=== PATIENT | male | born 1935 | race Two or more races ===

== ENCOUNTER 2017-04-13 10:20 | Outpatient (CLI) | payer MEDICARE, MEDICAID | END 2017-04-13 23:59 | disposition home health service (06) | LOC: WOU 10:20 | PROVIDERS: ATTEND Podiatrist Foot & Ankle Surgery | DX: L89.524 Pressure ulcer of left ankle, stage 4 (principal); L89.514 Pressure ulcer of right ankle, stage 4; L89.620 Pressure ulcer of left heel, unstageable; L89.610 Pressure ulcer of right heel, unstageable; L89.894 Pressure ulcer of other site, stage 4; Z74.01 Bed confinement status; Z87.891 Personal history of nicotine dependence; I12.0 Hypertensive chronic kidney disease with stage 5 chronic kidney disease or end stage renal disease; N18.6 End stage renal disease; Z99.2 Dependence on renal dialysis; Z93.1 Gastrostomy status; Z79.899 Other long term (current) drug therapy; B35.1 Tinea unguium; R53.1 Weakness; L89.159 Pressure ulcer of sacral region, unspecified stage | CPT/HCPCS: 11042; 11043; 11045; 11046; A6253 ×2; A6402 ×2 ==

== ENCOUNTER 2017-05-02 10:27 | Outpatient (CLI) | payer MEDICARE, MEDICAID | END 2017-05-02 23:59 | disposition home health service (06) | LOC: WOU 10:27 | PROVIDERS: ATTEND Podiatrist Foot & Ankle Surgery | PROC: 0KBS0ZZ Excision of Right Lower Leg Muscle, Open Approach (ICD-10-PCS; principal; 2017-05-02) | PROC: 0KBV0ZZ Excision of Right Foot Muscle, Open Approach (ICD-10-PCS; principal; 2017-05-02) | PROC: 0KBW0ZZ Excision of Left Foot Muscle, Open Approach (ICD-10-PCS; principal; 2017-05-02) | PROC: 0JBG0ZZ Excision of Right Lower Arm Subcutaneous Tissue and Fascia, Open Approach (ICD-10-PCS; principal; 2017-05-02) | DX: L89.524 Pressure ulcer of left ankle, stage 4 (principal); L89.624 Pressure ulcer of left heel, stage 4; L89.894 Pressure ulcer of other site, stage 4; L89.514 Pressure ulcer of right ankle, stage 4; L89.610 Pressure ulcer of right heel, unstageable; L89.223 Pressure ulcer of left hip, stage 3; L89.152 Pressure ulcer of sacral region, stage 2; L89.321 Pressure ulcer of left buttock, stage 1; L89.311 Pressure ulcer of right buttock, stage 1; L89.010 Pressure ulcer of right elbow, unstageable; Z87.891 Personal history of nicotine dependence; Z93.1 Gastrostomy status; Z99.2 Dependence on renal dialysis; I12.0 Hypertensive chronic kidney disease with stage 5 chronic kidney disease or end stage renal disease; N18.6 End stage renal disease; Z74.01 Bed confinement status; I69.30 Unspecified sequelae of cerebral infarction | CPT/HCPCS: 11042; 11043; 11045; 11046; A6209; A6210; A6402 ×2 ==

== ENCOUNTER 2017-05-09 09:58 | Outpatient (CLI) | payer MEDICARE, MEDICAID | END 2017-05-09 23:59 | disposition home or self-care (01) | LOC: WOU 09:58 | PROVIDERS: ATTEND Podiatrist Foot & Ankle Surgery | DX: L89.624 Pressure ulcer of left heel, stage 4 (principal); L89.610 Pressure ulcer of right heel, unstageable; L89.524 Pressure ulcer of left ankle, stage 4; L89.514 Pressure ulcer of right ankle, stage 4; L89.894 Pressure ulcer of other site, stage 4; L89.223 Pressure ulcer of left hip, stage 3; L89.010 Pressure ulcer of right elbow, unstageable; L89.152 Pressure ulcer of sacral region, stage 2; L89.322 Pressure ulcer of left buttock, stage 2; L89.312 Pressure ulcer of right buttock, stage 2; Z93.1 Gastrostomy status; I69.30 Unspecified sequelae of cerebral infarction; I12.0 Hypertensive chronic kidney disease with stage 5 chronic kidney disease or end stage renal disease; N18.6 End stage renal disease; Z99.2 Dependence on renal dialysis | CPT/HCPCS: 11043; 11046; A6209; A6210; A6253 ×3; A6402 ×3; G0463 ==

== ENCOUNTER 2017-09-10 15:20 | Inpatient (IN) | payer MEDICARE, OTHER ==
[~2017-09-10] VITALS: Ht 101.6 cm; Wt 71.7 kg
[2017-09-10 15:44] VITALS: BP 122/70
[2017-09-10] MEDS ORDERED: IV NS 0.9% 1,000 ML BAG IV ONE (16:00)
[2017-09-10 16:12] LABS: BASOPHILS % (AUTO) 0.3 % (0.0-2.0); EOSINOPHILS # (AUTO) 0.1 /CMM (0.0-0.7); EOSINOPHILS % (AUTO) 0.9 % (0.0-6.0); HEMATOCRIT 27 % (39-51); HEMOGLOBIN 8.8 g/dL (13.5-17.5); LYMPHOCYTES # (AUTO) 1.7 /CMM (0.8-4.8); LYMPHOCYTES % (AUTO) 21.4 % (20.0-44.0); MEAN CORPUSCULAR HEMOGLOBIN 29 PG (26.0-33.0); MEAN CORPUSCULAR HGB CONC 33 g/dl (31.0-36.0); MEAN CORPUSCULAR VOLUME 88 fL (80-96); MONOCYTES # (AUTO) 1.2 /CMM (0.1-1.30); MONOCYTES % (AUTO) 14.9 % (2.0-12.0); NEUTROPHILS # (AUTO) 4.8 /CMM (1.8-8.9); NEUTROPHILS % (AUTO) 62.5 % (43.0-81.0); PLATELET COUNT (AUTO) 132 /CMM (150-450); RDW COEFFICIENT OF VARIATION 22.4 (11.5-15.0); RED BLOOD CELL COUNT(AUTO) 3.03 MIL/uL (4.5-6.0); WHITE BLOOD COUNT (AUTO) 7.8 K/uL (4.3-11.0)
[2017-09-10 16:23] LABS: INR 1.11 (0.85-1.15)
[2017-09-10 16:27] LABS: ALANINE AMINOTRANSFERASE 28 U/L (12-78); ALBUMIN 1.9 g/dL (3.4-5.0); ALKALINE PHOSPHATASE 152 U/L (46-116); ASPARTATE AMINOTRANSFERASE 39 U/L (15-37); BILIRUBIN,DIRECT 0.4 mg/dL (0.0-0.2); BILIRUBIN,TOTAL 0.8 mg/dL (0.2-1.0); CALCIUM, SERUM 9.4 mg/dL (8.5-10.1); CARBON DIOXIDE 24 mmol/L (21-32); CHLORIDE 98 mmol/L (98-107); CREATININE 5.6 mg/dL (0.6-1.3); GLUCOSE 122 mg/dL (74-106); SODIUM SERUM 135 mmol/L (136-145); TOTAL PROTEIN, SERUM 9.8 g/dL (6.4-8.2); TROPONIN I 0.021 ng/mL (0.00-0.056)
[2017-09-10 16:32] LABS: POTASSIUM 6.2 mmol/L (3.5-5.1); UREA NITROGEN, BLOOD 112 mg/dL (7-18)
[2017-09-10] MEDS ORDERED: LEVO25TA9 GT (17:29)
[2017-09-10] MEDS ORDERED: EPOE3000 SQ (17:29)
[2017-09-10] MEDS ORDERED: [UNRECOGNIZED DRUG - CODE] SQ (17:29)
[2017-09-10] MEDS ORDERED: INSU100V7 SQ (17:29)
[2017-09-10] MEDS ORDERED: ACET-868 GT (17:29)
[2017-09-10] MEDS ORDERED: LANS30CA56 GT (17:29)
[2017-09-10] MEDS ORDERED: HYDR-552 GT (17:29)
[2017-09-10] MEDS ORDERED: INSU100I4 SQ (17:29)
[2017-09-10] MEDS ORDERED: VANCOMYCIN 1 GM in IV D5W 250 ML IV ONE (17:30)
[2017-09-10] MEDS ORDERED: PIPERACILLIN /TAZOBACTAM 3.375 G in IV D5W 50 ML IV ONE (17:30)
[2017-09-10 18:55] VITALS: BP 108/71
[2017-09-10] MEDS ORDERED: ACETAMINOPHEN 325 MG TABLET PO PRN ×2 (19:30→20:00)
[2017-09-10] MEDS ORDERED: MAG HYDROX/AL HYDROX/SIMETH 30 ML UDC PO PRN ×2 (19:30→20:00)
[2017-09-10] MEDS ORDERED: INSULIN REGULAR, HUMAN 100 UNIT/ML 3 ML VIAL SQ PRN ×2 (19:30→20:00)
[2017-09-10] MEDS ORDERED: HYDROCODONE/APAP 5/325MG 1 EACH TABLET PO PRN ×2 (19:30→20:00)
[2017-09-10] MEDS ORDERED: ZOLPIDEM TARTRATE 5 MG TABLET PO PRN ×2 (19:30→20:00)
[2017-09-10] MEDS ORDERED: Z GUARD REMEDY 2 OZ OINT TP PRN (19:30)
[2017-09-10] MEDS ORDERED: DEXTROSE 50%-WATER 50 ML DISP.SYRIN IV PRN ×2 (19:30→20:00)
[2017-09-10] MEDS ORDERED: MAGNESIUM HYDROXIDE 30 ML UDC PO PRN ×2 (19:30→20:00)
[2017-09-10] MEDS ORDERED: ONDANSETRON HCL/PF 4 MG/2 ML VIAL IVP PRN ×2 (19:30→20:00)
[2017-09-10] MEDS ORDERED: *INSULIN REGULAR(HUMULIN R)HUM 100 UNIT/ML VIAL SQ PRN (19:30)
[2017-09-10] MEDS ORDERED: HEPARIN SODIUM, PORCINE 1,000 UNIT/ML VIAL SQ SCH (19:30)
[2017-09-10] MEDS ORDERED: FEE PK DOSING 1 MIN EA MC ONE (19:46)
[2017-09-10 20:00] VITALS: BP 122/61
[2017-09-10] MEDS ORDERED: MORPHINE SULFATE INJ 4 MG/ML DISP.SYRIN IV PRN (20:00)
[2017-09-10] MEDS ORDERED: MORPHINE SULFATE INJ 2 MG/ML DISP.SYRIN IV PRN (20:00)
[2017-09-10] MEDS: PIPERACILLIN /TAZOBACTAM 2.25 G in IV NS 0.9% 50 ML IV SCH (21:24)
[2017-09-10] MEDS: *INSULIN REGULAR(HUMULIN R)HUM 100 UNIT/ML VIAL SQ PRN (21:34)
[2017-09-10] MEDS ORDERED: BLOOD SUGAR DIAGNOSTIC 1 EACH STRIP VI SCH ×2 (22:00)
[2017-09-11] MEDS: PIPERACILLIN /TAZOBACTAM 2.25 G in IV NS 0.9% 50 ML IV SCH ×3 (05:37→21:43)
[2017-09-11] MEDS ORDERED: VANCOMYCIN 500 MG in IV D5W 100 ML IV PRN (06:00)
[2017-09-11] MEDS: BLOOD SUGAR DIAGNOSTIC 1 EACH STRIP VI SCH ×3 (06:19→17:16)
[2017-09-11 08:00] VITALS: BP 91/48
[2017-09-11 08:08] LABS: BASOPHILS % (AUTO) 0.4 % (0.0-2.0); EOSINOPHILS # (AUTO) 0.1 /CMM (0.0-0.7); EOSINOPHILS % (AUTO) 1.2 % (0.0-6.0); HEMATOCRIT 28 % (39-51); HEMOGLOBIN 8.8 g/dL (13.5-17.5); LYMPHOCYTES # (AUTO) 1.2 /CMM (0.8-4.8); LYMPHOCYTES % (AUTO) 18.9 % (20.0-44.0); MEAN CORPUSCULAR HEMOGLOBIN 28 PG (26.0-33.0); MEAN CORPUSCULAR HGB CONC 32 g/dl (31.0-36.0); MEAN CORPUSCULAR VOLUME 88 fL (80-96); MONOCYTES # (AUTO) 1.3 /CMM (0.1-1.30); MONOCYTES % (AUTO) 19.6 % (2.0-12.0); NEUTROPHILS # (AUTO) 3.9 /CMM (1.8-8.9); NEUTROPHILS % (AUTO) 59.9 % (43.0-81.0); PLATELET COUNT (AUTO) 108 /CMM (150-450); RDW COEFFICIENT OF VARIATION 25.2 (11.5-15.0); RED BLOOD CELL COUNT(AUTO) 3.12 MIL/uL (4.5-6.0); WHITE BLOOD COUNT (AUTO) 6.6 K/uL (4.3-11.0)
[2017-09-11 08:25] LABS: CALCIUM, SERUM 8.7 mg/dL (8.5-10.1); CARBON DIOXIDE 20 mmol/L (21-32); CHLORIDE 99 mmol/L (98-107); GLUCOSE 79 mg/dL (74-106); MAGNESIUM 2.9 mg/dL (1.8-2.4); SODIUM SERUM 137 mmol/L (136-145)
[2017-09-11 08:29] LABS: PHOSPHORUS 9.2 mg/dL (2.5-4.9); POTASSIUM 6.6 mmol/L (3.5-5.1); UREA NITROGEN, BLOOD 115 mg/dL (7-18)
[2017-09-11] MEDS: LEVOTHYROXINE SODIUM 25 MCG TABLET GT SCH (09:03)
[2017-09-11 10:00] VITALS: BP 92/45
[2017-09-11] MEDS ORDERED: EPOETIN ALFA (10,000 UNIT) 10,000 UNIT/ML VIAL IV ONE (11:00)
[2017-09-11 11:31] LABS: LYMPHOCYTES % (MANUAL) 22 % (16-48); MONOCYTES % (MANUAL) 11 % (0-11.0); NEUTROPHILS % (MANUAL) 67 (42-76)
[2017-09-11] MEDS ORDERED: ALBUMIN 25% 25 GM in PREMIX 1 EA IV ONE (12:30)
[2017-09-11 16:00] VITALS: BP 94/58
[2017-09-11] MEDS ORDERED: SILVER NITRATE APPLICATOR 1 EA BOX TP ONE (16:00)
[2017-09-11] MEDS ORDERED: LIDOCAINE 1%-EPI 1:100,000 20 ML VIAL TP ONE (16:00)
[2017-09-11] MEDS: DAKINS QUARTER STRENGTH (0.125%) 480 ML BOTTLE TOP SCH (17:12)
[2017-09-11] MEDS: IPRATROPIUM NEB FS 0.5 MG/2.5 ML AMPUL.NEB NEB SCH ×2 (17:19→19:57)
[2017-09-11] MEDS: ALBUTEROL HALF STRENGTH 1.25 MG/3 ML VIAL.NEB NEB SCH ×2 (17:20→19:57)
[2017-09-11] MEDS: ACETYLCYSTEINE 10% SOLN 400 MG/4 ML VIAL NEB SCH (17:20)
[2017-09-11 20:00] VITALS: BP 117/60
[2017-09-12] VITALS: BP 107/55
[2017-09-12] MEDS: BLOOD SUGAR DIAGNOSTIC 1 EACH STRIP VI SCH ×5 (01:01→23:57)
[2017-09-12] MEDS: *INSULIN REGULAR(HUMULIN R)HUM 100 UNIT/ML VIAL SQ PRN (01:23)
[2017-09-12] MEDS: IPRATROPIUM NEB FS 0.5 MG/2.5 ML AMPUL.NEB NEB SCH ×4 (01:50→19:47)
[2017-09-12] MEDS: ALBUTEROL HALF STRENGTH 1.25 MG/3 ML VIAL.NEB NEB SCH ×4 (01:50→19:47)
[2017-09-12 04:00] VITALS: BP 102/50
[2017-09-12] MEDS: PIPERACILLIN /TAZOBACTAM 2.25 G in IV NS 0.9% 50 ML IV SCH ×3 (04:59→20:54)
[2017-09-12] MEDS: ACETYLCYSTEINE 10% SOLN 400 MG/4 ML VIAL NEB SCH ×4 (07:16→23:30)
[2017-09-12 08:00] VITALS: BP 104/49
[2017-09-12 08:05] LABS: ALANINE AMINOTRANSFERASE 23 U/L (12-78); ALBUMIN 2.1 g/dL (3.4-5.0); ALKALINE PHOSPHATASE 111 U/L (46-116); ASPARTATE AMINOTRANSFERASE 27 U/L (15-37); BILIRUBIN,TOTAL 0.9 mg/dL (0.2-1.0); CALCIUM, SERUM 8.7 mg/dL (8.5-10.1); CARBON DIOXIDE 19 mmol/L (21-32); CHLORIDE 98 mmol/L (98-107); CREATININE 5.4 mg/dL (0.6-1.3); GLUCOSE 72 mg/dL (74-106); MAGNESIUM 2.7 mg/dL (1.8-2.4); POTASSIUM 5.7 mmol/L (3.5-5.1); SODIUM SERUM 138 mmol/L (136-145); TOTAL PROTEIN, SERUM 8.5 g/dL (6.4-8.2)
[2017-09-12 08:06] LABS: UREA NITROGEN, BLOOD 100 mg/dL (7-18)
[2017-09-12 08:07] LABS: PHOSPHORUS 9.5 mg/dL (2.5-4.9)
[2017-09-12 08:17] LABS: BASOPHILS % (AUTO) 0.2 % (0.0-2.0); EOSINOPHILS % (AUTO) 0.9 % (0.0-6.0); HEMATOCRIT 25 % (39-51); HEMOGLOBIN 7.9 g/dL (13.5-17.5); MEAN CORPUSCULAR HEMOGLOBIN 28 PG (26.0-33.0); MEAN CORPUSCULAR HGB CONC 31 g/dl (31.0-36.0); MEAN CORPUSCULAR VOLUME 88 fL (80-96); MONOCYTES % (AUTO) 19.1 % (2.0-12.0); NEUTROPHILS # (AUTO) 3.4 /CMM (1.8-8.9); NEUTROPHILS % (AUTO) 61.8 % (43.0-81.0); PLATELET COUNT (AUTO) 84 /CMM (150-450); RDW COEFFICIENT OF VARIATION 23.8 (11.5-15.0); RED BLOOD CELL COUNT(AUTO) 2.87 MIL/uL (4.5-6.0); WHITE BLOOD COUNT (AUTO) 5.4 K/uL (4.3-11.0)
[2017-09-12] MEDS: DAKINS QUARTER STRENGTH (0.125%) 480 ML BOTTLE TOP SCH (08:19)
[2017-09-12] MEDS: Z GUARD REMEDY 2 OZ OINT TP PRN (08:19)
[2017-09-12] MEDS: LEVOTHYROXINE SODIUM 25 MCG TABLET GT SCH (08:19)
[2017-09-12 08:26] LABS: IRON, SERUM 53 ug/dl (50-175); TOTAL IRON BINDING CAPACITY 112 ug/dl (250-450)
[2017-09-12 08:37] LABS: FERRITIN 6175 ng/mL (8-388)
[2017-09-12 09:30] LABS: BAND % (MANUAL) 1 % (0.0-5.0); EOSINOPHILS % (MANUAL) 3 % (0-4); LYMPHOCYTES % (MANUAL) 10 % (16-48); MONOCYTES % (MANUAL) 16 % (0-11.0); NEUTROPHILS % (MANUAL) 70 (42-76)
[2017-09-12 12:00] VITALS: BP_SYST 105; BP_DIAS 59; BP_DIAS 64
[2017-09-12] MEDS: SEVELAMER CARBONATE 0.8 GM POWD.PACK GT SCH ×2 (12:12→17:30)
[2017-09-12] MEDS ORDERED: RENAL NOVASOURCE 1,000 ML BOTTLE GT PRN (15:00)
[2017-09-12 16:00] VITALS: BP 100/57
[2017-09-12] MEDS ORDERED: EPOETIN ALFA (10,000 UNIT) 10,000 UNIT/ML VIAL IV ONE (17:30)
[2017-09-12 20:00] VITALS: BP 115/61
[2017-09-13] VITALS: BP 102/54
[2017-09-13] MEDS: IPRATROPIUM NEB FS 0.5 MG/2.5 ML AMPUL.NEB NEB SCH ×3 (01:25→14:29)
[2017-09-13] MEDS: ALBUTEROL HALF STRENGTH 1.25 MG/3 ML VIAL.NEB NEB SCH ×3 (01:25→14:29)
[2017-09-13 04:00] VITALS: BP 113/57
[2017-09-13] MEDS: BLOOD SUGAR DIAGNOSTIC 1 EACH STRIP VI SCH ×3 (06:20→17:14)
[2017-09-13] MEDS: PIPERACILLIN /TAZOBACTAM 2.25 G in IV NS 0.9% 50 ML IV SCH ×2 (06:21→12:31)
[2017-09-13] MEDS: ACETYLCYSTEINE 10% SOLN 400 MG/4 ML VIAL NEB SCH ×2 (07:44→16:16)
[2017-09-13 07:57] LABS: BASOPHILS % (AUTO) 0.6 % (0.0-2.0); HEMATOCRIT 27 % (39-51); HEMOGLOBIN 8.5 g/dL (13.5-17.5); LYMPHOCYTES # (AUTO) 0.8 /CMM (0.8-4.8); LYMPHOCYTES % (AUTO) 20.6 % (20.0-44.0); MEAN CORPUSCULAR HEMOGLOBIN 28 PG (26.0-33.0); MEAN CORPUSCULAR HGB CONC 32 g/dl (31.0-36.0); MEAN CORPUSCULAR VOLUME 88 fL (80-96); MONOCYTES # (AUTO) 0.7 /CMM (0.1-1.30); MONOCYTES % (AUTO) 17.8 % (2.0-12.0); NEUTROPHILS # (AUTO) 2.4 /CMM (1.8-8.9); PLATELET COUNT (AUTO) 66 /CMM (150-450); RED BLOOD CELL COUNT(AUTO) 3.06 MIL/uL (4.5-6.0)
[2017-09-13 08:00] VITALS: BP 100/60
[2017-09-13 08:11] LABS: CALCIUM, SERUM 8.4 mg/dL (8.5-10.1); CARBON DIOXIDE 21 mmol/L (21-32); CHLORIDE 96 mmol/L (98-107); CREATININE 4.8 mg/dL (0.6-1.3); GLUCOSE 119 mg/dL (74-106); MAGNESIUM 2.5 mg/dL (1.8-2.4); SODIUM SERUM 135 mmol/L (136-145); UREA NITROGEN, BLOOD 79 mg/dL (7-18)
[2017-09-13] MEDS: LEVOTHYROXINE SODIUM 25 MCG TABLET GT SCH (08:11)
[2017-09-13] MEDS: SEVELAMER CARBONATE 0.8 GM POWD.PACK GT SCH ×3 (08:11→17:15)
[2017-09-13 08:13] LABS: PHOSPHORUS 8.2 mg/dL (2.5-4.9)
[2017-09-13] MEDS: Z GUARD REMEDY 2 OZ OINT TP PRN (08:14)
[2017-09-13] MEDS: DAKINS QUARTER STRENGTH (0.125%) 480 ML BOTTLE TOP SCH (08:14)
[2017-09-13 09:31] LABS: EOSINOPHILS % (MANUAL) 1 % (0-4); LYMPHOCYTES % (MANUAL) 26 % (16-48); MONOCYTES % (MANUAL) 10 % (0-11.0); NEUTROPHILS % (MANUAL) 63 (42-76)
[2017-09-13 12:00] VITALS: BP 111/63
[2017-09-13] MEDS ORDERED: Renal Novasource GT (14:52)
[2017-09-13] MEDS ORDERED: PIPE2.254 IV (14:52)
[2017-09-13] MEDS ORDERED: LACT1CAP72 PO (14:52)
[2017-09-13] MEDS ORDERED: ALBU1.25 NEB (14:52)
[2017-09-13] MEDS ORDERED: VANC1VIA XX (14:52)
[2017-09-13] MEDS ORDERED: Prosource GT (14:52)
[2017-09-13] MEDS ORDERED: SEVE0.8P GT (14:52)
[2017-09-13] MEDS ORDERED: IPRA0.2S9 NEB (14:52)
[2017-09-13 16:00] VITALS: BP 115/70
[2017-09-13] MEDS ORDERED: EPOETIN ALFA (10,000 UNIT) 10,000 UNIT/ML VIAL IV ONE (16:00)
[2017-09-13] MEDS ORDERED: PROSOURCE / PROSTAT (PYXIS) 30 ML UDC GT SCH (17:00)
[2017-09-13] MEDS ORDERED: LACTOBACILLUS RHAMNOSUS GG 1 EACH CAP.SPRINK PO SCH (17:00)
== END 2017-09-13 19:18 | DRG 853 ==
LOC: ER 15:24 → TELE1 19:11
PROVIDERS: ADMIT Internal Medicine; ATTEND Internal Medicine
PROC: 5A1945Z Respiratory Ventilation, 24-96 Consecutive Hours (ICD-10-PCS; principal; 2017-09-10)
PROC: 5A1D70Z Performance of Urinary Filtration, Intermittent, Less than 6 Hours Per Day (ICD-10-PCS; 2017-09-11)
PROC: 5A1D70Z Performance of Urinary Filtration, Intermittent, Less than 6 Hours Per Day (ICD-10-PCS; 2017-09-12)
PROC: 0KBN0ZZ Excision of Right Hip Muscle, Open Approach (ICD-10-PCS; 2017-09-13)
PROC: 0KBN0ZZ Excision of Right Hip Muscle, Open Approach (ICD-10-PCS; 2017-09-13)
PROC: 0KBP0ZZ Excision of Left Hip Muscle, Open Approach (ICD-10-PCS; 2017-09-13)
PROC: 0KBP0ZZ Excision of Left Hip Muscle, Open Approach (ICD-10-PCS; 2017-09-13)
DX: A41.9 Sepsis, unspecified organism (principal); J96.20 Acute and chronic respiratory failure, unspecified whether with hypoxia or hypercapnia; E43 Unspecified severe protein-calorie malnutrition; G92 Toxic encephalopathy; J18.9 Pneumonia, unspecified organism; Z99.11 Dependence on respirator [ventilator] status; L89.154 Pressure ulcer of sacral region, stage 4; L89.214 Pressure ulcer of right hip, stage 4; L89.224 Pressure ulcer of left hip, stage 4; L89.324 Pressure ulcer of left buttock, stage 4; L89.314 Pressure ulcer of right buttock, stage 4; N18.6 End stage renal disease; J96.21 Acute and chronic respiratory failure with hypoxia; R40.3 Persistent vegetative state; I12.0 Hypertensive chronic kidney disease with stage 5 chronic kidney disease or end stage renal disease; Z68.44 Body mass index [BMI] 60.0-69.9, adult; J98.11 Atelectasis; E11.51 Type 2 diabetes mellitus with diabetic peripheral angiopathy without gangrene; E11.22 Type 2 diabetes mellitus with diabetic chronic kidney disease; Z93.0 Tracheostomy status; E87.5 Hyperkalemia; D63.8 Anemia in other chronic diseases classified elsewhere; Z99.2 Dependence on renal dialysis; E03.9 Hypothyroidism, unspecified; F03.90 Unspecified dementia, unspecified severity, without behavioral disturbance, psychotic disturbance, mood disturbance, and anxiety; E83.39 Other disorders of phosphorus metabolism; Z93.1 Gastrostomy status; Z87.440 Personal history of urinary (tract) infections; Z87.01 Personal history of pneumonia (recurrent); R13.10 Dysphagia, unspecified; N25.0 Renal osteodystrophy; I95.9 Hypotension, unspecified; Z79.4 Long term (current) use of insulin; E88.09 Other disorders of plasma-protein metabolism, not elsewhere classified; E66.01 Morbid (severe) obesity due to excess calories; Z89.611 Acquired absence of right leg above knee; Z89.612 Acquired absence of left leg above knee
CPT/HCPCS: 31720; 36415; 71045-TC; 80048-TC; 80053-TC; 80076-TC; 80202-TC; 82728-TC; 82962-TC; 83540-TC; 83605-TC; 83735-TC; 84100-TC; 84484-TC; 85025-TC; 85730-TC; 87040-TC; 87070-TC; 87081-TC; 87186-TC; 87400; 90935-TC; 94003-TC; 94760-TC; 94762-TC; A4216; A4606; A6253; A6402; A6403; J0885; J1815; J2405; J2543; J3370; J3490; J7030; J7050; J7060; P9047; Z7610

== ENCOUNTER 2017-09-26 17:58 | Inpatient (IN) | payer MEDICARE, OTHER ==
[2017-09-26] VITALS (9 sets, daily range): BP systolic 87–106; BP diastolic 49–62
[~2017-09-26] VITALS: Ht 152.4 cm; Wt 69.9 kg
[~2017-09-26 17:58] MED LIST: ACET-868 GT; ALBU1.25 NEB; EPOE3000 SQ; HYDR-552 GT; INSU100I4 SQ; INSU100V7 SQ; IPRA0.2S9 NEB; LACT1CAP72 PO; LANS30CA56 GT; LEVO25TA9 GT; PIPE2.254 IV; Prosource GT; Renal Novasource GT; SEVE0.8P GT; VANC1VIA XX; [UNRECOGNIZED DRUG - CODE] SQ
--- NOTE | 2017-09-26 18:05 | NUR ---
BBRA FR90 FROM [facility] FOR MORE ALTERED THAN NORMAL. BS 252 IN FIELD. PATIENT IS TRACH/VENT DEPENDENT. OBTUNDED, BREATHING EVEN VIA VENT. NO SOB NOTED. PATIENT IS HOT TO TOUCH, FEVER 103.1 RECTALLY. COOLING MEASURES IN PLACE. HYPOTENSIVE UPON ARRIVAL. MIDLINE INTACT AND PATENT ON ARRIVAL ON RIGHT UPPER ARM. GTUBE IN PLACE AND PATENT. SAFETY AND COMFORT MEASURES IN PLACE. AWAITING MD ORDERS.
[2017-09-26 18:26] LABS: ABG BASE EXCESS -3.2 mmol/L; ABG OXYGEN SATURATION 97.4 % (92.0-98.5); ABG PCO2 27.2 mmHg (35.0-45.0); ABG PH 7.475 (7.350-7.450); ABG PO2 99.7 mmHg (75.0-100.0); AaDO2 154.2 mmHg; COHb 0.5 % (0.5-1.5); MetHb 0.7 % (0.0-1.5); O2Hb 96.2 % (94.0-97.0); SITE, ABG Left Radial
[2017-09-26] MEDS ORDERED: ACETAMINOPHEN 325 MG TABLET MC ONE (18:30)
[2017-09-26 18:33] LABS: BASOPHILS % (AUTO) 0.1 % (0.0-2.0); HEMATOCRIT 25 % (39-51); LYMPHOCYTES # (AUTO) 0.7 /CMM (0.8-4.8); LYMPHOCYTES % (AUTO) 17.4 % (20.0-44.0); MEAN CORPUSCULAR HGB CONC 32 g/dl (31.0-36.0); MEAN CORPUSCULAR VOLUME 87 fL (80-96); MONOCYTES # (AUTO) 0.4 /CMM (0.1-1.30); MONOCYTES % (AUTO) 10.4 % (2.0-12.0); NEUTROPHILS # (AUTO) 2.9 /CMM (1.8-8.9); NEUTROPHILS % (AUTO) 72.1 % (43.0-81.0); PLATELET COUNT (AUTO) 57 /CMM (150-450); RED BLOOD CELL COUNT(AUTO) 2.88 MIL/uL (4.5-6.0)
[2017-09-26] MEDS ORDERED: ACETAMINOPHEN 325 MG TABLET ONE (18:35)
[2017-09-26 18:49] LABS: CALCIUM, SERUM 8.2 mg/dL (8.5-10.1); CARBON DIOXIDE 23 mmol/L (21-32); CHLORIDE 99 mmol/L (98-107); CREATININE 2.6 mg/dL (0.6-1.3); GLUCOSE 218 mg/dL (74-106); POTASSIUM 3.3 mmol/L (3.5-5.1); SODIUM SERUM 136 mmol/L (136-145); UREA NITROGEN, BLOOD 41 mg/dL (7-18)
[2017-09-26 18:54] LABS: ALANINE AMINOTRANSFERASE 41 U/L (12-78); ALBUMIN 1.7 g/dL (3.4-5.0); ALKALINE PHOSPHATASE 116 U/L (46-116); ASPARTATE AMINOTRANSFERASE 64 U/L (15-37); BILIRUBIN,DIRECT 0.3 mg/dL (0.0-0.2); BILIRUBIN,TOTAL 0.7 mg/dL (0.2-1.0); TOTAL PROTEIN, SERUM 8.7 g/dL (6.4-8.2)
[2017-09-26 18:57] LABS: INR 1.09 (0.87-1.13); TROPONIN I 0.074 ng/mL (0.00-0.056)
--- NOTE | 2017-09-26 18:57 | NUR ---
MD INFORMED PATIENTS BLOOD PRESSURE RUNNING LOW, 84/51, HR 114. MD STATED TO START LEVOPHED DRIP AT 8 MCG/HR. MEDICATION ADMINISTERED VIA RIGHT UPPER ARM MIDLINE.
[2017-09-26] MEDS ORDERED: MEROPENEM 500 MG in IV NS 0.9% 50 ML IV ONE (19:00)
[2017-09-26] MEDS ORDERED: NOREPINEPHRINE 8 MG in IV D5W 500 ML IV PRN ×2 (19:00→20:30)
[2017-09-26] MEDS ORDERED: VANCOMYCIN 1 GM in IV D5W 250 ML IV ONE (19:00)
[2017-09-26] MEDS ORDERED: ALBUMIN 25% 100 ML IV ONE (19:26)
--- NOTE | 2017-09-26 19:29 | NUR ---
REPORT GIVEN TO ALBERTO CRUZ FOR MARLO.
[2017-09-26] MEDS ORDERED: INSU100V7 SQ (19:37)
[2017-09-26] MEDS ORDERED: ASCO250T5 GT (19:37)
[2017-09-26] MEDS ORDERED: FOLI0.8T23 GT (19:37)
[2017-09-26] MEDS ORDERED: IPRA3AMP23 IH (19:37)
[2017-09-26] MEDS ORDERED: PROT946L GT (19:37)
[2017-09-26] MEDS ORDERED: HYDR-552 GT (19:37)
[2017-09-26] MEDS ORDERED: NUTR100037 GT (19:39)
[2017-09-26 19:41] LABS: BAND % (MANUAL) 19 % (0.0-5.0); LYMPHOCYTES % (MANUAL) 19 % (16-48); MONOCYTES % (MANUAL) 10 % (0-11.0); NEUTROPHILS % (MANUAL) 52 (42-76)
--- NOTE | 2017-09-26 19:49 | NUR ---
PT IS ASSIGNED TO ICU BED RM#[id number], PT IS DIAGNOSED WITH SEVERE SEPSIS, AND JORGE DE PAZ IS THE ACCEPTING BLOCK SORTER.
[2017-09-26] MEDS ORDERED: ASPIRIN 81 MG TAB.CHEW PO ONE (20:00)
[2017-09-26] MEDS ORDERED: ASPIRIN 81 MG TAB.CHEW ONE (20:06)
[2017-09-26] MEDS: ALBUMIN 25% 12.5 GM/50 ML BOTTLE IV ONE ×2 (20:12→21:28)
--- NOTE | 2017-09-26 20:13 | NUR ---
REPORT GIVEN TO MAHESH CRUZ FOR ADMISSION AND MARLO. ENDORSED TO MAHESH ALBUMIN ORDER FROM DR ANDREWS.
--- NOTE | 2017-09-26 20:21 | NUR ---
TRANSFERRED PATIENT TO ICU FLOOR VIA ALS PROTOCOL, NO INCIDENT NOTED.
[2017-09-26] MEDS ORDERED: ACETAMINOPHEN 325 MG TABLET PO PRN ×2 (20:30→23:30)
[2017-09-26] MEDS ORDERED: ONDANSETRON HCL/PF 4 MG/2 ML VIAL IVP PRN (20:30)
[2017-09-26] MEDS ORDERED: Z GUARD REMEDY 2 OZ OINT TP PRN (20:30)
[2017-09-26] MEDS ORDERED: MAG HYDROX/AL HYDROX/SIMETH 30 ML UDC PO PRN (20:30)
[2017-09-26] MEDS ORDERED: MAGNESIUM HYDROXIDE 30 ML UDC PO PRN (20:30)
[2017-09-26] MEDS ORDERED: FEE PK DOSING 1 MIN EA MC ONE (20:41)
[2017-09-26] MEDS: PIPERACILLIN /TAZOBACTAM 2.25 G in IV D5W 50 ML IV SCH (20:58)
[2017-09-26] MEDS: IV NS 0.9% 1,000 ML IV PRN (20:59)
[2017-09-26] MEDS ORDERED: MORPHINE SULFATE INJ 4 MG/ML DISP.SYRIN IV PRN (21:00)
--- NOTE | 2017-09-26 21:02 | NUR ---
PT RECEIVED TRACHED ON THE VENT WITH NOTED SETTINGS. VENT ALARMS WORKING AND AUDIBLE, AMBU BAG AT BEDSIDE. GROUP CARE WORKER CUFF PRESSURE NOTED. VENT IS PLUGGED INTO RED OUTLET. WILL CONTINUE TO MONITOR
[2017-09-26] MEDS ORDERED: DEXTROSE 50%-WATER 50 ML DISP.SYRIN IV PRN (21:30)
--- NOTE | 2017-09-26 21:41 | NUR ---
HAIRMASTERS MANAGER. NEW ADMISSION., RECEIVED THE PT FROM ER VIA [facility] ROOM 258, ADMITTED FOR SEPTIC SHOCK..PT IS OBTUNDED. DOES NOT FOLLOW COMMANDS. ASHLEY LOWER EXTREMITY AMPUTATION TRACH TO VENT CONNECTED. SETTINGS SHILEY #8,AC 12,TV 550, FIO2 40%, PEEP 5. SAT 98%. ADULT BASIC EDUCATION TEACHER SHOWING S TACH. IV RT UPPER ARM PICC LINE IVF NS 150ML/H ,LEVOPHED STARTED FROM ER 8MCG/MIN. RT SUBCLAVIAN HD CATH. HOB ELEVATED. GT INTACT. CLAMPED.
[2017-09-26] MEDS ORDERED: INSULIN REGULAR, HUMAN 100 UNIT/ML 3 ML VIAL ONE (21:53)
[2017-09-26] MEDS: BLOOD SUGAR DIAGNOSTIC 1 EACH STRIP IN SCH (22:02)
[2017-09-26] MEDS: INSULIN REGULAR, HUMAN 100 UNIT/ML 3 ML VIAL SQ PRN (22:22)
--- NOTE | 2017-09-26 23:11 | NUR ---
PT TRANSPORTED FOR CT SCAN, NO RESPIRATORY DISTRESS NOTED
[2017-09-26] MEDS ORDERED: Medication Not On Formulary EA (Ipratropium/Albuterol Sulfate (Duoneb 2.5-0.5 Mg/3 Ml So IH PRN (23:30)
[2017-09-26] MEDS ORDERED: HEPARIN SODIUM, PORCINE 1,000 UNIT/ML VIAL SQ SCH (23:30)
--- NOTE | 2017-09-26 23:45 | NUR ---
ADJUNCT WRITING INSTRUCTOR. PT CAME IN THE ICU NOTICED RT SIDE FACIAL DROOP. I CALLED HOB MACHINE OPERATOR ALBERTO . SHE SAID PT CAME IN THE ER SAME RT SIDE DROOPING. I CALLED PT FACILITY [facility]. FOR RT SIDE FACIAL DROOP. I SPOKE WITH RETINA FLOWER GRADER ,SHE SAID PT WAS ALTERED , THAN USUAL , . NO FACIAL DROOP , THEY CALLED 911.
--- NOTE | 2017-09-26 23:54 | NUR ---
ASSOCIATE DIRECTOR OF NURSING PT DAUGHTER EDVIN SAID RT SIDE FACIAL DROOP NEW. SAME TIME REPRESENTATIVE PHLEBOTOMY SERVICES ROBERT AT BED SIDE ASSESS THE PT , SHE MADE AWARE, ORDERED HEAD CT. WE TOOK THE PT FOR CT HEAD SAME TIME FRESH RECTAL BLEEDING NOTED.
--- NOTE | 2017-09-26 23:59 | NUR ---
MIDDLE SCHOOL LIBRARIAN. TRANSFER THE PT TO CT SCAN WITH ACLS PROTOCOL WITH . 2 RNS
[2017-09-27] VITALS (95 sets, daily range): BP systolic 38–153; BP diastolic 20–122
--- NOTE | 2017-09-27 | NUR ---
WORKERS COMPENSATION ATTORNEY. PT BACK FROM CT SCAN. WILL CONTINUE TO MONITOR. WAITING FOR CT SCAN RESULT.
[2017-09-27 00:39] LABS: HEMOGLOBIN 7.1 g/dL (13.5-17.5)
--- NOTE | 2017-09-27 02:55 | NUR ---
TANK BOTTOM ASSEMBLER. PT HAS RECTAL BLEEDING NOTED. JORGE LABORER TAN HOUSE MADE AWARE. 1 UNIT PRBC ORDERED.
--- NOTE | 2017-09-27 02:56 | NUR ---
TEMPORARY ADMINISTRATIVE ASSISTANT. 1 UNIT PRBC STARTED. WILL CONTINUE TO MONITOR VITALS.
--- NOTE | 2017-09-27 04:51 | NUR ---
SNOW RANGER. 1ST UNIT BLOOD FINISHED, DURING TRANSFUSION NO COMPLICATION NOTED.WILL CONTINUE TO MONITOR.
[2017-09-27] MEDS: PIPERACILLIN /TAZOBACTAM 2.25 G in IV D5W 50 ML IV SCH ×2 (04:53→12:15)
[2017-09-27 05:13] LABS: HEMATOCRIT 23 % (39-51); HEMOGLOBIN 7.5 g/dL (13.5-17.5); LYMPHOCYTES # (AUTO) 0.9 /CMM (0.8-4.8); LYMPHOCYTES % (AUTO) 14.3 % (20.0-44.0); MEAN CORPUSCULAR HGB CONC 33 g/dl (31.0-36.0); MEAN CORPUSCULAR VOLUME 87 fL (80-96); MONOCYTES # (AUTO) 0.5 /CMM (0.1-1.30); MONOCYTES % (AUTO) 7.5 % (2.0-12.0); NEUTROPHILS % (AUTO) 78.2 % (43.0-81.0); PLATELET COUNT (AUTO) 63 /CMM (150-450); RED BLOOD CELL COUNT(AUTO) 2.63 MIL/uL (4.5-6.0); WHITE BLOOD COUNT (AUTO) 6.4 K/uL (4.3-11.0)
[2017-09-27 05:33] LABS: CALCIUM, SERUM 7.6 mg/dL (8.5-10.1); CARBON DIOXIDE 19 mmol/L (21-32); CHLORIDE 104 mmol/L (98-107); CREATININE 3.1 mg/dL (0.6-1.3); GLUCOSE 268 mg/dL (74-106); SODIUM SERUM 138 mmol/L (136-145); UREA NITROGEN, BLOOD 54 mg/dL (7-18)
[2017-09-27 05:37] LABS: MAGNESIUM 2.3 mg/dL (1.8-2.4); PHOSPHORUS 3.9 mg/dL (2.5-4.9)
[2017-09-27 05:40] LABS: CHOLESTEROL 89 mg/dL (<200); HDL CHOLESTEROL 12 mg/dL (40-60); LDL 30 mg/dL (0-99); TRIGLYCERIDES 490 mg/dL (30-150)
[2017-09-27] MEDS ORDERED: VANCOMYCIN 500 MG in IV D5W 100 ML IV PRN (07:00)
--- NOTE | 2017-09-27 07:30 | NUR ---
RN NOTES RECEIVED PT IN BED, OBTUNDED. TRACHE IN PLACE. SHILEY 8. CONNECTED TO VENT SETTINGS PRESCRIBED: AC 12 TV 550 FIO2 40% PEEP 5. SUCTIONED FOR AIRWAY CLEARANCE. PT NOTED BITING TUBE WHEN SUCTIONED ORALLY. ST ON SKIRT PANEL ASSEMBLER HR 130 BPM AT THIS TIME. ON LEVO DRIP @20MCG/MIN INFUSING ON MELANIE MIDLINE ALSO IVF NS@ 150ML/HR INFUSING ON MELANIE MIDLINE.R CHEST WALL PERMACATH FOR HD ACCESS DRESSING CDI. NOTED WITH FEBRILE EPSIODE THIS MORNING TEMP: 100.8, COOLING MEASURES PROVIDED. SAFETY MAINTAINED, WILL MONITOR CLOSELY
[2017-09-27] MEDS: BLOOD SUGAR DIAGNOSTIC 1 EACH STRIP IN SCH ×4 (07:46→20:22)
[2017-09-27] MEDS: INSULIN REGULAR, HUMAN 100 UNIT/ML 3 ML VIAL SQ PRN ×2 (07:47→12:24)
[2017-09-27] MEDS: SEVELAMER CARBONATE 0.8 GM POWD.PACK GT SCH ×3 (08:00→17:02)
[2017-09-27] MEDS: PROSOURCE / PROSTAT (PYXIS) 30 ML UDC GT SCH ×3 (08:21→16:56)
--- NOTE | 2017-09-27 08:25 | NUR ---
RN NOTES ALL PO AM MEDS HELD, PT ON NPO STATUS
[2017-09-27] MEDS ORDERED: IPRATROPIUM NEB FS 0.5 MG/2.5 ML AMPUL.NEB NEB PRN (08:30)
[2017-09-27] MEDS ORDERED: ALBUTEROL FS 2.5 MG/3 ML VIAL.NEB NEB PRN (08:30)
[2017-09-27] MEDS ORDERED: NOREPINEPHRINE 8 MG in IV D5W 500 ML IV PRN ×4 (08:30)
[2017-09-27] MEDS ORDERED: RENAL NOVASOURCE 1,000 ML BOTTLE GT PRN (08:30)
[2017-09-27] MEDS ORDERED: PANTOPRAZOLE 40 MG VIAL IV SCH ×2 (09:00→17:00)
[2017-09-27] MEDS ORDERED: VIT B CMPLX 3/FA/VIT C/BIOTIN 1 TAB TABLET GT SCH (09:00)
[2017-09-27] MEDS ORDERED: INSULIN GLARGINE, 100 UNIT/ML CARTRIDGE SQ SCH (09:00)
[2017-09-27] MEDS ORDERED: Medication Not On Formulary EA (Lansoprazole 30 MG) GT SCH (09:00)
[2017-09-27] MEDS ORDERED: LEVOTHYROXINE SODIUM 25 MCG TABLET GT SCH (09:00)
[2017-09-27] MEDS ORDERED: ASCORBIC ACID 500 MG TABLET GT SCH (09:00)
--- NOTE | 2017-09-27 09:12 | NUR ---
RN NOTES 0900 PT TURNED AND REPOSITIONED, STILL NOTED WITH LARGE AMOUNT OF RECTAL BLEEDING ( BRIGHT RED). [address] CARVER, CURRENT EVENTS REPORTED. PT RECEIVED 1 UNIT OF PRBC LAST NIGHT FOR HEMOGLOBIN OF 7.1. PT STILL HAS ACTIVE RECTAL BLEEDING THIS MORNING. LACTIC ACID 5.0 THIS MORNING INFORMED MD PT IS RECEIVING IVF NS@100ML/HR AND ON LEVO @20MCG/MIN. LAST HD WAS YESTERDAY. AWAITING FOR ORDERS.
[2017-09-27] MEDS: IV NS 0.9% 1,000 ML IV PRN ×2 (09:44→16:01)
--- NOTE | 2017-09-27 10:30 | NUR ---
RN NOTES SPOKE WITH JOSE SALVADOR, PT UPDATES REPORTED. H/H 7.5/23 PLATELET: 63. PT HAS ACTIVE RECTAL BLEEDING. RECOMMENDED FFP. PT/INR 11.3/1.09 PTT: 48. PENDING GI CONSULT. PER JOSE TRANSFUSE 1 UNIT OF PRBC. PT IS ON LEVO@22MCG/MIN. LACTIC ACID 5.0. CONT IVF NS@150ML/HR. AWAITING FOR FURTHER ORDERS.
[2017-09-27 10:59] LABS: BASOPHILS % (AUTO) 0.2 % (0.0-2.0); LYMPHOCYTES # (AUTO) 1.8 /CMM (0.8-4.8); LYMPHOCYTES % (AUTO) 18.8 % (20.0-44.0); MEAN CORPUSCULAR HGB CONC 32 g/dl (31.0-36.0); MEAN CORPUSCULAR VOLUME 89 fL (80-96); MONOCYTES # (AUTO) 1.1 /CMM (0.1-1.30); MONOCYTES % (AUTO) 11.2 % (2.0-12.0); NEUTROPHILS # (AUTO) 6.6 /CMM (1.8-8.9); NEUTROPHILS % (AUTO) 69.8 % (43.0-81.0); PLATELET COUNT (AUTO) 62 /CMM (150-450); RDW COEFFICIENT OF VARIATION 23.2 (11.5-15.0); RED BLOOD CELL COUNT(AUTO) 2.16 MIL/uL (4.5-6.0); WHITE BLOOD COUNT (AUTO) 9.4 K/uL (4.3-11.0)
[2017-09-27 11:03] LABS: HEMATOCRIT 19 % (39-51); HEMOGLOBIN 6.2 g/dL (13.5-17.5)
--- NOTE | 2017-09-27 11:29 | NUR ---
PT UNSTABLE TO COME DOWN FOR CT, NURSE WILL CALL WHEN READY
--- NOTE | 2017-09-27 11:48 | NUR ---
RN NOTES PT NOT STABLE TO BE TRANSPORTED FOR CT SCAN AND GI BLEED SCAN. JOSE SALVADOR AND GURINDER VELAZQUEZ AWARE. WILL SEND TO CT AND GI BLEED SCAN WHEN PT IS MORE STABLE
[2017-09-27 12:05] LABS: BAND % (MANUAL) 17 % (0.0-5.0); LYMPHOCYTES % (MANUAL) 21 % (16-48); MONOCYTES % (MANUAL) 8 % (0-11.0); NEUTROPHILS % (MANUAL) 54 (42-76)
--- NOTE | 2017-09-27 12:18 | NUR ---
RN NOTES CALLED DR CLAIRE MONCADA OFFICE , LEFT A MESSAGE REGARDING TRACHEOSTOMY EVALUATION PER DR CARVER , AWAITING FOR CALL BACK
--- NOTE | 2017-09-27 14:30 | NUR ---
RN NOTES HD NURSE AT BEDSIDE. 1 UNIT PRBC GIVEN WITH HD. ON LEVO DRIP WILL TITRATE ORDERED
--- NOTE | 2017-09-27 14:50 | NUR ---
RN NOTES 1450 NO BP NOTED. NO PALPABLE PULSES BUT SHOWING RHYTHM ON THE MONITOR. ALFREDA MCNAMARA WAS CALLED. STARTED COMPRESSIONS. CODE BLUE TEAM ARRIVED AT BEDSIDE, ACLS PROTOCOL FOLLOWED. DR CARVER AT BEDSIDE. EPI GIVEN X4. ATROPINE GIVEN X1. PT DEFIB UP TO 200J X2. FAMILY AT BEDSIDE, ADVISED TO STEP OUT DURING THE CODE BLUE. 1513 PT ON ROSC. LABS WERE DRAWN. AWAITING FOR RESULTS. DAUGHTER EDVIN NOTIFIED
[2017-09-27] MEDS ORDERED: NOREPINEPHRINE 16 MG in IV D5W 500 ML IV PRN (15:00)
[2017-09-27 17:14] LABS: BASOPHILS % (AUTO) 0.2 % (0.0-2.0); EOSINOPHILS % (AUTO) 0.2 % (0.0-6.0); LYMPHOCYTES # (AUTO) 3.7 /CMM (0.8-4.8); LYMPHOCYTES % (AUTO) 30.3 % (20.0-44.0); MEAN CORPUSCULAR HGB CONC 31 g/dl (31.0-36.0); MEAN CORPUSCULAR VOLUME 93 fL (80-96); MONOCYTES # (AUTO) 0.6 /CMM (0.1-1.30); MONOCYTES % (AUTO) 4.9 % (2.0-12.0); NEUTROPHILS # (AUTO) 7.9 /CMM (1.8-8.9); NEUTROPHILS % (AUTO) 64.4 % (43.0-81.0); RDW COEFFICIENT OF VARIATION 21.5 (11.5-15.0); RED BLOOD CELL COUNT(AUTO) 2.17 MIL/uL (4.5-6.0); WHITE BLOOD COUNT (AUTO) 12.2 K/uL (4.3-11.0)
[2017-09-27 17:21] LABS: HEMATOCRIT 20 % (39-51); HEMOGLOBIN 6.2 g/dL (13.5-17.5); PLATELET COUNT (AUTO) 47 /CMM (150-450)
[2017-09-27] MEDS ORDERED: PHENYLEPHRINE 40 MG in IV D5W 250 ML IV PRN (17:30)
[2017-09-27 17:46] LABS: BAND % (MANUAL) 22 % (0.0-5.0); BASOPHILS % (MANUAL) 2 % (0.0-2.0); LYMPHOCYTES % (MANUAL) 30 % (16-48); MONOCYTES % (MANUAL) 7 % (0-11.0); NEUTROPHILS % (MANUAL) 39 (42-76)
[2017-09-27 17:54] LABS: CHLORIDE 109 mmol/L (98-107); POTASSIUM 6.6 mmol/L (3.5-5.1); SODIUM SERUM 142 mmol/L (136-145)
[2017-09-27 17:55] LABS: CALCIUM, SERUM 7.5 mg/dL (8.5-10.1); CARBON DIOXIDE 4 mmol/L (21-32); GLUCOSE 74 mg/dL (74-106)
--- NOTE | 2017-09-27 17:55 | NUR ---
RN NOTES RECEIVED CALL FROM LAB HEMOGLOBIN OF 6.[address] CARVER NOTIFIED, GAVE ORDER TO TRANSFUSE 2UNITS PRBC. I UNIT PLATELET PHARESIS AND DDVAP PHARAMACY TO DOSE. ORDERS CARRIED OUT
[2017-09-27 17:56] LABS: CREATININE 2.9 mg/dL (0.6-1.3); UREA NITROGEN, BLOOD 54 mg/dL (7-18)
[2017-09-27] MEDS ORDERED: DESMOPRESSIN 20 MCG in IV NS 0.9% 50 ML IV ONE (18:00)
--- NOTE | 2017-09-27 18:35 | NUR ---
RN NOTES PT WENT TO PEA. BP UNAPPRECIATED. ALFREDA MCNAMARA WAS CALLED. COMPRESSION STARTED. CODE NAIMA TEAM ARRIVED. ER DOCTOR ORDER TO MAX OUT LEVO AND DOUGLAS. AND GIVE BOLUS 1L. SEE CODE BLUE SHEET FOR DETAILED EVENTS.
--- NOTE | 2017-09-27 18:55 | NUR ---
RN NOTES PT WENT TO PEA AGAIN, BP UNAPPRECIATED. NO PALPABLE PULSE CHEST COMPRESSION STARTED. CODE BLUE CALLED, EPI GIVEN. CODE NAIMA TEAM AT BEDSIDE. ACLS PROTOCOL FOLLWED. SEE CODE BLUE SHEET
--- NOTE | 2017-09-27 19:47 | NUR ---
HYDROMETER CALIBRATOR NOTES 1946 PATIENT BECAME BRADYCARDIC, NO PULSES PALPABLE, PT IN PEA. CODE BLUE INITIATED. COMPRESSIONS AND BAGGING INITIATED. RN's, RT's, DIAMOND CLEAVER, GIRL FRIDAY, PHARMACIST AND ED MD AT BEDSIDE. ACLS PROTOCOL FOLLOWED. PT EKG ON TWO MONITORS. MEDS GIVEN: EPI X4, BICARB X3, CALCIUM X1, 1L NS BOLUS. 2001 PATIENT CONVERTED TO SR. PULSES PALPABLE IN TWO LOCATIONS. CODE BLUE STOPPED. PLACED BACK ON VENT, PRESSORS AND TRANSFUSIONS CONTINUED. DR WALTERS SPOKE TO FAMILY ABOUT POOR PROGNOSIS AND RECOMMENDS CODE STATUS CHANGE. FAMILY WISHES TO CONTINUE CODE BLUE UNTIL SISTER ARRIVES.
[2017-09-27] MEDS ORDERED: ALBUTEROL FS 2.5 MG/3 ML VIAL.NEB NEB STA (20:04)
--- NOTE | 2017-09-27 20:15 | NUR ---
RN NOTES REPORT GIVEN TO RAYMUNDO CRUZ FOR CONTINUITY OF CARE
[2017-09-27] MEDS ORDERED: DAKINS QUARTER STRENGTH (0.125%) 480 ML BOTTLE TOP SCH (20:30)
[2017-09-27] MEDS ORDERED: BLOOD SUGAR DIAGNOSTIC 1 EACH STRIP IN SCH (20:30)
--- NOTE | 2017-09-27 20:33 | NUR ---
MERCHANDISE CLERK NOTES WOUND CARE NOT RENDERED, PT UNSTABLE FOR WOUND CARE.
--- NOTE | 2017-09-27 20:39 | NUR ---
RAILWAY SIGNAL TECHNICIAN NOTES 2038 PATIENT WENT INTO PEA, CODE BLUE INITIATED, COMPRESSIONS INITIATED, PT AMBU BAGGED. RN's, RT AND MACHINE OPERATOR PICKER AT BEDSIDE. 2039 ER MD, PHARMACIST AND RT TEAM AT BEDSIDE. 2048 PATIENT PRONOUNCED , CODE BLUE STOPPED.
[2017-09-27 20:45] LABS: CHLORIDE 111 mmol/L (98-107); CREATININE 2.9 mg/dL (0.6-1.3); GLUCOSE 220 mg/dL (74-106); SODIUM SERUM 147 mmol/L (136-145); UREA NITROGEN, BLOOD 54 mg/dL (7-18)
[2017-09-27 20:48] LABS: CARBON DIOXIDE 10 mmol/L (21-32); POTASSIUM 7.3 mmol/L (3.5-5.1)
[2017-09-27] MEDS ORDERED: ATROPINE SULFATE 1 MG/10 ML DISP.SYRIN IV ONE (20:48)
[2017-09-27] MEDS ORDERED: CALCIUM CHLORIDE 1,000 MG/10 ML DISP.SYRIN IV ONE ×2 (20:48)
[2017-09-27] MEDS ORDERED: EPINEPHRINE (1:10,000) SYRINGE 1 MG/10 ML DISP.SYRIN IVP ONE ×3 (20:48)
[2017-09-27] MEDS ORDERED: DEXTROSE 50%-WATER 50 ML DISP.SYRIN IV ONE (20:48)
[2017-09-27] MEDS ORDERED: Magnesium 1 GM/2 ML VIAL IV ONE (20:48)
[2017-09-27] MEDS ORDERED: SODIUM BICARBONATE SYR 50 MEQ/50 ML DISP.SYRIN IV ONE ×2 (20:48)
[2017-09-27] MEDS ORDERED: FEE EMEERGENCY 1 MIN EA MC ONE (20:48)
--- NOTE | 2017-09-27 21:35 | NUR ---
REAL ESTATE PROFESSOR NOTES HEMP FIBER TAKER OFF JORGE DE PAZ NOTIFIED, POST MORTEM CARE RENDERED, POST MORTEM DOCUMENTATION COMPLETED. TELEVISION TUBE INSPECTOR AND ADMITTING NOTIFIED. [facility] CONTACTED, PATIENT IS NOT AN ELIGIBLE DONOR.
[2017-09-27] MEDS ORDERED: ATORVASTATIN 40 MG TABLET PO SCH (22:00)
--- NOTE | 2017-09-28 00:20 | NUR ---
SUPERVISOR SAWMILL NOTES PATIENT REMAINS TAKEN TO [place] WITH RN AND SECURITY. PATIENT CHART GIVEN TO SMEARER SMITH.
== END 2017-09-27 20:49 | disposition expired | DRG 871 ==
LOC: ER 18:01 → ICU 20:12
PROVIDERS: ADMIT Internal Medicine; ATTEND Internal Medicine
PROC: 5A1945Z Respiratory Ventilation, 24-96 Consecutive Hours (ICD-10-PCS; principal; 2017-09-26)
PROC: 5A12012 Performance of Cardiac Output, Single, Manual (ICD-10-PCS; 2017-09-27)
PROC: 30233N1 Transfusion of Nonautologous Red Blood Cells into Peripheral Vein, Percutaneous Approach (ICD-10-PCS; 2017-09-27)
DX: A41.9 Sepsis, unspecified organism (principal); E43 Unspecified severe protein-calorie malnutrition; J96.20 Acute and chronic respiratory failure, unspecified whether with hypoxia or hypercapnia; I21.A1 Myocardial infarction type 2; J15.6 Pneumonia due to other Gram-negative bacteria; D61.818 Other pancytopenia; R65.21 Severe sepsis with septic shock; R57.8 Other shock; G92 Toxic encephalopathy; J15.9 Unspecified bacterial pneumonia; Z99.11 Dependence on respirator [ventilator] status; N18.6 End stage renal disease; D68.59 Other primary thrombophilia; E87.2 Acidosis; I13.2 Hypertensive heart and chronic kidney disease with heart failure and with stage 5 chronic kidney disease, or end stage renal disease; J95.03 Malfunction of tracheostomy stoma; K92.2 Gastrointestinal hemorrhage, unspecified; K57.92 Diverticulitis of intestine, part unspecified, without perforation or abscess without bleeding; E11.22 Type 2 diabetes mellitus with diabetic chronic kidney disease; Z93.1 Gastrostomy status; Z89.612 Acquired absence of left leg above knee; Z99.2 Dependence on renal dialysis; E03.9 Hypothyroidism, unspecified; E66.01 Morbid (severe) obesity due to excess calories; E87.6 Hypokalemia; I50.9 Heart failure, unspecified; K21.9 Gastro-esophageal reflux disease without esophagitis; D63.8 Anemia in other chronic diseases classified elsewhere; D69.6 Thrombocytopenia, unspecified; E88.09 Other disorders of plasma-protein metabolism, not elsewhere classified; E11.51 Type 2 diabetes mellitus with diabetic peripheral angiopathy without gangrene; Z74.01 Bed confinement status; D50.0 Iron deficiency anemia secondary to blood loss (chronic); R74.0 Nonspecific elevation of levels of transaminase and lactic acid dehydrogenase [LDH]; Z79.4 Long term (current) use of insulin; Y84.8 Other medical procedures as the cause of abnormal reaction of the patient, or of later complication, without mention of misadventure at the time of the procedure; Y72.8 Miscellaneous otorhinolaryngological devices associated with adverse incidents, not elsewhere classified; Y92.129 Unspecified place in nursing home as the place of occurrence of the external cause; R13.10 Dysphagia, unspecified; R29.810 Facial weakness; Z89.611 Acquired absence of right leg above knee
CPT/HCPCS: 31720; 36415; 36600; 70450-TC; 71045-TC; 80048-TC; 80061-TC; 80076-TC; 80202-TC; 82962-TC; 83605-TC; 83735-TC; 84100-TC; 84484-TC; 85025-TC; 85027-TC; 85730-TC; 86850-TC; 86921-TC; 87040-TC; 87081-TC; 90935-TC; 94002-TC; 94003-TC; 99082-TC; A4216; A4606; A6403; C9113; J0171; J0461; J1815; J2185; J2270; J2370; J2543; J2597; J3370; J3475; J3490; J7030; J7060; P9016-BL; P9047; Z7610